=== PATIENT | male | born 1985 | race Caucasian/White ===

== ENCOUNTER 2017-03-11 11:12 | Emergency (ER) | payer BC ==
[2017-03-11 11:40] VITALS: BP 134/80
--- NOTE | 2017-03-11 13:33 | EDM.PDOC ---
ED HPI GENERAL MEDICAL PROBLEM - General Chief Complaint: Lower Extremity Injury/Pain Stated Complaint: LEFT ANKLE INJURY Time Seen by Provider: 03/11/17 12:22 Source of Information: Reports: Patient History Limitations: Reports: No Limitations - History of Present Illness INITIAL COMMENTS - FREE TEXT/NARRATIVE: Patient suffered traumatic injury to his left ankle. He twisted it. He has significant pain and swelling the lateral aspect of the ankle. There is no bony deformity. Pulses are satisfactory. And no neurologic deficits noted. No other injuries noted. He has complete recall of the event. Onset: Today Onset Date: 03/11/17 Duration: Hour(s): Location: Reports: Lower Extremity, Left Quality: Reports: Ache, Pressure, Sharp Severity: Moderate Improves with: Reports: None Worsens with: Reports: None Context: Reports: Trauma Associated Symptoms: Reports: No Other Symptoms Treatments REVENUE AGENT: Reports: NSAIDS (Patient not want any other pain medication) left ankle Pain Score (Numeric/FACES): 5 - Related Data Allergies Allergy/AdvReac Type Severity Reaction Status Date / Time vancomycin Allergy Hives Verified 03/11/17 11:39 Home Meds: Home Meds Fexofenadine [Estelita] 30 mg PO DAILY 03/11/17 [History] Testosterone 6 mg TOP DAILY 03/11/17 [History] buPROPion [Wellbutrin] 75 mg PO BID 03/11/17 [History] Past Medical History HEENT History: Reports: None Psychiatric History: Reports: Anxiety, Depression, Panic Attack Dermatologic History: Reports: Eczema - Past Surgical History HEENT Surgical History: Reports: Other (See Below) Other HEENT Surgeries/Procedures: nose cauterized x 2 Social & Family History - Tobacco Use Smoking Status *Q: Never Smoker - Alcohol Use Days Per Week of Alcohol Use: 7 Number of Drinks Per Day: 2 Total Drinks Per Week: 14 Date of Last Drink: 03/10/17 Time of Last Drink: 21:00 - Recreational Drug Use Recreational Drug Use: No Review of Systems - Review of Systems Review Of Systems: See Below Constitutional: Reports: No Symptoms Eyes: Reports: No Symptoms Ears: Reports: No Symptoms Nose: Reports: No Symptoms Mouth/Throat: Reports: No Symptoms Respiratory: Reports: No Symptoms Cardiovascular: Reports: No Symptoms GI/Abdominal: Reports: No Symptoms Genitourinary: Reports: No Symptoms Musculoskeletal: Reports: No Symptoms (Left ankle injury and symptoms today) Skin: Reports: No Symptoms Neurological: Reports: No Symptoms Psychiatric: Reports: No Symptoms ED EXAM, GENERAL - Physical Exam Exam: See Below Exam Limited By: No Limitations General Appearance: Alert, WD/WN, Mild Distress Eye Exam: Bilateral Eye: Normal Inspection Ears: Normal External Exam Nose: Normal Inspection Throat/Mouth: Normal Inspection Head: Atraumatic, Normocephalic Neck: Normal Inspection Respiratory/Chest: No Respiratory Distress Cardiovascular: Normal Peripheral Pulses Back Exam: Normal Inspection Extremities: No: Normal Inspection (Injury left ankle) Neurological: Alert, Oriented, Normal Cognition Psychiatric: Normal Affect, Normal Mood Skin Exam: Warm, Dry, Intact, Normal Color, No Rash Course - Vital Signs Last Recorded V/S: Last Vital Signs Temp 96.6 F 03/11/17 11:38 Pulse 77 03/11/17 11:38 Resp 14 03/11/17 11:38 BP 134/80 03/11/17 11:38 Pulse Ox 96 03/11/17 11:38 - Orders/Labs/Meds Orders: Active Orders 24 hr Category Date Time Status DME for Discharge [COMM] Stat Oth 03/11/17 13:26 Ordered Departure - Departure Time of Disposition: 13:30 Disposition: Home, Self-Care 01 Condition: Good Clinical Impression: Left ankle sprain Qualifiers: Encounter type: initial encounter Involved ligament of ankle: deltoid ligament Qualified Code(s): S93.422A - Sprain of deltoid ligament of left ankle, initial encounter - Discharge Information Instructions: Ankle Sprain, [id number] Referrals: PCP,None [Primary Care Provider] - Forms: ED Department Discharge Additional Instructions: Patient seen in the emergency room with pain and swelling the lateral aspect left ankle. X-rays taken and reviewed there does not appear to be fractured or dislocation. The patient will be treated for acute sprain of the left ankle. He was placed on crutches. Patient is not to use his left ankle for ambulation. Ice 20 minutes every 2 hours. Elevation of the ankle above the heart to help reduce pain and swelling. Hao wrap for compression and help reduce swelling. No weightbearing until pain has resolved significantly. Ibuprofen and/or Tylenol to be used to help reduce pain and swelling. Reevaluation is needed if there is failure to respond to treatment plan. - Problem List & Annotations (1) Left ankle sprain SNOMED Code(s): 61492014 Code(s): S93.402A - SPRAIN OF UNSPECIFIED LIGAMENT OF LEFT ANKLE, INIT ENCNTR Status: Acute Qualifiers: Encounter type: initial encounter Involved ligament of ankle: deltoid ligament Qualified Code(s): S93.422A - Sprain of deltoid ligament of left ankle, initial encounter - Problem List Review Problem List Initiated/Reviewed/Updated: Yes - My Orders Last 24 Hours: My Active Orders 03/11/17 13:26 DME for Discharge [COMM] Stat - Assessment/Plan Last 24 Hours: My Active Orders 03/11/17 13:26 DME for Discharge [COMM] Stat
--- NOTE | 2017-03-11 13:49 | CR ---
Ankle Min 3V Lt HISTORY: Trauma FINDINGS: There is normal alignment. There is no evidence of fracture. The ankle mortise appears int act. The soft tissues are unremarkable. IMPRESSION: Negative exam.
== END 2017-03-11 14:08 | disposition home or self-care (01) ==
LOC: JP.ED 11:12
DX: S93.422A Sprain of deltoid ligament of left ankle, initial encounter (principal); F41.9 Anxiety disorder, unspecified; F32.9 Major depressive disorder, single episode, unspecified; Z88.1 Allergy status to other antibiotic agents; Z79.899 Other long term (current) drug therapy; W10.9XXA Fall (on) (from) unspecified stairs and steps, initial encounter
CPT/HCPCS: 73610-26-LT; 73610-LT; 99284